=== PATIENT | female | born 1955 | race Caucasian/White ===

== ENCOUNTER 2022-05-20 02:31 | Emergency (ER) | payer MEDICAID, MEDICARE, OTHER ==
[~2022-05-20] VITALS: Ht 147.3 cm; Wt 54.5 kg
[~2022-05-20 02:31] MED LIST: MAGN296S PO; PRED50TA PO
[2022-05-20] MEDS ORDERED: ondansetron/PF 4mg/2ml inj IV ONE (03:00)
[2022-05-20] MEDS ORDERED: normal saline 1000ml 1,000 ML IV ONE (03:00)
[2022-05-20] MEDS ORDERED: fentaNYL/PF 50MCG/1 ML 2ML syringe IV ONE ×2 (03:05→03:30)
[2022-05-20] MEDS ORDERED: iohexol 300mg/ml 100ml inj. ONE (03:06)
[2022-05-20 03:34] LABS: BASOPHILS # (AUTO) 0.1 X10'3 (0-0.2); BASOPHILS % (AUTO) 0.8 % (0-1); EOSINOPHILS # (AUTO) 0.1 X10'3 (0-0.9); EOSINOPHILS % (AUTO) 1.6 % (0-6); HEMATOCRIT 40.6 % (35.0-45.0); HEMOGLOBIN 13.6 g/dl (12.0-16.0); LYMPHOCYTES # (AUTO) 1.9 X10'3 (1.1-4.8); LYMPHOCYTES % (AUTO) 28.5 % (21-51); MEAN CORPUSCULAR HEMOGLOBIN 31.3 PG (27.0-31.0); MEAN CORPUSCULAR HGB CONC 33.6 g/dL (33.0-36.5); MEAN PLATELET VOLUME 7.4 FL (7.4-10.4); MONOCYTES # (AUTO) 0.6 X10'3 (0-0.9); NEUTROPHILS % (AUTO) 60.1 % (42-75); PLATELET COUNT 262 X10'3 (140-440); RED BLOOD COUNT 4.37 X10'6 (4.20-5.60); RED CELL DISTRIBUTION WIDTH 13.1 % (11.5-14.5); WHITE BLOOD COUNT 6.6 X10'3 (4.5-11.0)
[2022-05-20 03:42] LABS: ALANINE AMINOTRANSFERASE 23 U/L (12-78); ALBUMIN 3.5 G/DL (3.4-5.0); ALBUMIN/GLOBULIN RATIO 1.1 (1.1-1.5); ALKALINE PHOSPHATASE 131 IU/L (46-116); ANION GAP 10 (8-16); ASPARTATE AMINO TRANSFERASE 22 U/L (10-37); BILIRUBIN,TOTAL 0.4 MG/DL (0.1-1.0); BLOOD UREA NITROGEN 21 MG/DL (7-18); BUN/CREATININE RATIO 21.4 (6.6-38.0); CALCIUM 9.1 MG/DL (8.5-10.1); CHLORIDE 104 MMOL/L (99-107); CREATININE 0.98 MG/DL (0.40-0.90); ETHANOL < 0.010 GM/DL (0.0-0.010); GLUCOSE 132 MG/DL (70-104); POTASSIUM 3.8 MMOL/L (3.5-5.1); SODIUM 139 MMOL/L (135-145); TOTAL CARBON DIOXIDE 25.5 MMOL/L (24-32); TOTAL PROTEIN 6.7 G/DL (6.4-8.2); eGFR 57 ML/MIN
[2022-05-20 04:00] VITALS: BP 137/72
[2022-05-20] MEDS ORDERED: ketorolac trometh. 30mg/ml inj. IV ONE (05:25)
[2022-05-20] MEDS ORDERED: HYDR-3965 PO (05:34)
[2022-05-20] MEDS ORDERED: IBUP-1984 PO (05:34)
[2022-05-20] MEDS ORDERED: HYDROcodone/acetaminophen 5mg/325mg tablet PO ONE (05:35)
[2022-05-20] MEDS ORDERED: acetaminophen 325mg tablet PO ONE (05:35)
== END 2022-05-20 06:43 | disposition home or self-care (01) ==
LOC: ER 02:31
DX: S22.42XA Multiple fractures of ribs, left side, initial encounter for closed fracture (principal); S42.002A Fracture of unspecified part of left clavicle, initial encounter for closed fracture; M79.605 Pain in left leg; M25.512 Pain in left shoulder; R42 Dizziness and giddiness; R55 Syncope and collapse; Z98.51 Tubal ligation status; Z90.89 Acquired absence of other organs; Z72.89 Other problems related to lifestyle; Z79.899 Other long term (current) drug therapy; W19.XXXA Unspecified fall, initial encounter; Y93.89 Activity, other specified; Y92.89 Other specified places as the place of occurrence of the external cause; Y99.8 Other external cause status
CPT/HCPCS: 36415; 70450; 71260; 72125; 74177; 80053; 80320; 84484; 85025; 85610; 86885; 86900; 86901; 93005; 96361; 96374; 96375; 99285; J1885; J2405; J3010; J3490; J7030; Q9967